=== PATIENT | male | born 1950 | race Hispanic/Latino ===

== ENCOUNTER 2018-11-10 18:30 | Emergency (ER) | payer OTHER ==
[2018-11-10] MEDS ORDERED: BOOSTRIX IM ONE (19:09)
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
[2018-11-10] MEDS ORDERED: ZOFRAN IV ONE (19:16)
[2018-11-10] MEDS ORDERED: MORPHINE IV ONE ×2 (19:16→21:03)
[2018-11-10] MEDS ORDERED: ceFAZolin 2 GM in NACL 0.9% 100 ML IV ONE (20:00)
[2018-11-10] MEDS ORDERED: NACL 0.9% 500 ML IR ONE (20:22)
[2018-11-10] MEDS ORDERED: XYLOCAINE 2% INFILTRATI ONE (20:31)
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
[2018-11-10 22:25] VITALS: BP 156/82
[2018-11-11] MEDS ORDERED: NACL 0.9% IR ONE (07:24)
== END 2018-11-10 21:40 | disposition other institution (70) ==
LOC: ED 18:30
DX: S61.215A Laceration without foreign body of left ring finger without damage to nail, initial encounter (principal); S62.627B Displaced fracture of middle phalanx of left little finger, initial encounter for open fracture; I10 Essential (primary) hypertension; E78.00 Pure hypercholesterolemia, unspecified; Z85.9 Personal history of malignant neoplasm, unspecified; Z95.0 Presence of cardiac pacemaker; Z98.890 Other specified postprocedural states; Z79.82 Long term (current) use of aspirin; Z79.899 Other long term (current) drug therapy; Z88.6 Allergy status to analgesic agent; W32.0XXA Accidental handgun discharge, initial encounter; Y93.89 Activity, other specified; Y92.098 Other place in other non-institutional residence as the place of occurrence of the external cause; Y99.8 Other external cause status
CPT/HCPCS: 12041; 29130; 73140; 90471; 90715; 96365; 96375; 96376; 99291; J0690; J2270; J2405; 99285